=== PATIENT | male | born 1965 | race Caucasian/White ===

== ENCOUNTER 2022-05-13 14:41 | Emergency (ER) | payer OTHER ==
[~2022-05-13] VITALS: Ht 180.3 cm; Wt 100.2 kg
== END 2022-05-13 17:35 | disposition home or self-care (01) ==
LOC: ER 14:41 → EDBD 14:45 → ER 14:45
DX: L73.8 Other specified follicular disorders (principal)

== ENCOUNTER 2022-08-26 07:54 | Emergency (ER) | payer OTHER ==
[~2022-08-26] VITALS: Ht 180.3 cm; Wt 99.3 kg
[2022-08-26] MEDS ORDERED: ANUSOL-HC25 MG RECTAL (10:02)
== END 2022-08-26 10:12 | disposition home or self-care (01) ==
LOC: ER 07:54
DX: K64.9 Unspecified hemorrhoids (principal)

== ENCOUNTER 2025-04-26 05:57 | Emergency (ER) | payer OTHER ==
[~2025-04-26] VITALS: Ht 180.3 cm; Wt 92.5 kg
[~2025-04-26 05:57] MED LIST: ANUSOL-HC25 MG RECTAL
[2025-04-26] MEDS ORDERED: FAMOTIDINE/PF 20 MG/2 ML VIAL ONE (07:58)
[2025-04-26] MEDS ORDERED: ONDANSETRON HCL 2 MG/ML VIAL ONE (07:58)
[2025-04-26] MEDS ORDERED: KETOROLAC TROMETHAMINE 30 MG VIAL ONE (07:58)
[2025-04-26] MEDS ORDERED: KETOROLAC TROMETHAMINE 30 MG VIAL IV ONE (08:00)
[2025-04-26] MEDS ORDERED: FAMOtidine 10 MG/ML (4ML VIAL) IV ONE (08:00)
[2025-04-26] MEDS ORDERED: ONDANSETRON HCL 2 MG/ML VIAL IV ONE (08:00)
[2025-04-26 08:28] LABS: BASO % 0.6 % (0.1-1.2); EOS # 0.11 (0.04-0.54); EOS % 1.2 % (0.7-7.0); LYMPH # 1.08 (1.18-3.74); LYMPH % 11.9 % (19.3-53.1); MEAN PLATELET VOLUME 10.20 fl (9.4-12.4); MONO # 0.44 (0.24-0.82); MONO % 4.8 % (4.7-12.5); NEUT # 7.39 (1.56-6.13); NEUT % 81.3 % (34.0-71.1); RED CELL DISTRIBUTION WIDTH 12.6 % (11.6-14.4)
[2025-04-26 08:49] LABS: INR 1.01
[2025-04-26 08:56] LABS: URINE APPEARANCE Clear; URINE BILIRRUBIN Negative (NEGATIVE); URINE BLOOD Negative; URINE COLOR Yellow; URINE GLUCOSE Negative (NEGATIVE); URINE KETONE 15 (NEGATIVE); URINE LEUKOCYTE Negative; URINE NITRATE Negative; URINE PROTEIN Negative (NEGATIVE); URINE UROBILINOGEN 0.2 E.U./dl
[2025-04-26 08:57] LABS: URINE BACTERIA 28.7 uL (0.0-1933); URINE CAST 1.90 uL (0.0-1.40); URINE EPITHELIAL CELLS 2.9 uL (0.0-38.8); URINE WBC 4.7 uL (0.0-23.2)
[2025-04-26 09:24] LABS: URINE MUCUS MODERATE; URINE RBC 1.7 uL (0.0-20.8)
[2025-04-26 09:37] LABS: ALT/SGPT 28.0 U/L (12-78); AST/SGOT 18.0 U/L (15-37); BILIRUBIN TOTAL 0.56 mg/dL (0.3-1.2); BUN CREA RATIO 23.0 (7.0-25.0); CREATININE SERUM 0.87 mg/dL (0.70-1.30); GFR 89.51; GLOBULINA 3.3 G/DL (2.4-3.5); GLUCOSE FASTING 119.0 mg/dL (65-100); OSMOLALITY SERUM 287.0 MOSM/KG (275-295)
[2025-04-26] MEDS ORDERED: METRONIDAZOLE500 MG PO (09:41)
[2025-04-26] MEDS ORDERED: TAMS0.4C PO (09:41)
[2025-04-26] MEDS ORDERED: LEVSIN/SL0.125 MG SL (09:41)
[2025-04-26] MEDS ORDERED: PROBIOTIC1 EAC2 PO (09:41)
[2025-04-26] MEDS ORDERED: CIPRO500 MG PO (09:41)
[2025-04-26] MEDS ORDERED: PEPCID AC20 MG PO (09:41)
== END 2025-04-26 11:00 | disposition home or self-care (01) ==
LOC: ER 05:58
PROVIDERS: General Practice
DX: R10.32 Left lower quadrant pain (principal); R19.7 Diarrhea, unspecified